=== PATIENT | female | born 1945 | race Caucasian/White ===

== ENCOUNTER 2017-02-02 02:28 | Inpatient (IN) | payer MEDICARE, BC, OTHER ==
[2017-02-02] VITALS (7 sets, daily range): BP systolic 112–142; BP diastolic 57–74; PULSE 69–104; RESP 18–20; TEMP 97.2–98.3; O2SAT 95–99
[~2017-02-02] VITALS: Ht 162.6 cm; Wt 74.8 kg
[~2017-02-02 02:28] MED LIST: CARV3.125 PO; DOXE25CA2 PO; DURAGESIC TD; EFFE150C PO; PROM25SU8 PO
--- NOTE | 2017-02-02 02:42 | PD ---
HPI Chief Complaint: Fall Time Seen by Provider: 02:38 Travel History International Travel<30 days: No Contact w/Intl Traveler<30days: No Traveled to known affect area: No History of Present Illness HPI This is a 72-year-old female with a history of breast cancer, sarcoidosis, fibromyalgia, who presents today via EMS with complaints of right ankle pain. Patient states she got up to use the restroom when she twisted her ankle wrong way. She states she felt a pop. She reports pain in her lower ankle in the anterior and posterior distribution. She denies any numbness or tingling of her toes. She denies any other injuries. PFSH Past Medical History Arthritis: Yes Blood Disorders: Yes (PREDISPOSITION TO BLOOD CLOTS) Anxiety: Yes Cancer: Yes (TRIP. BREASTS & SKIN) Cardiovascular Problems: Yes Chemotherapy: Yes (1993) Cerebrovascular Accident: Yes (PROB. DUE TO BCP'S) Diminished Hearing: No Endocrine: No Gastrointestinal Disorders: Yes GERD: Yes Genitourinary: Yes Hypertension: Yes Immune Disorder: Yes (FIBROMYALGIA) Kidney Stones: Yes (LEFT KIDNEY) Musculoskeletal: Yes Neurologic: Yes Psychiatric: Yes Reproductive: No Respiratory: Yes (SARCOIDOSIS) Radiation Therapy: No ?: Not Past Surgical History Abdominal Surgery: Yes (CHOLECYSTECTOMY) Section: Yes Cholecystectomy: Yes Ear Surgery: Yes (RIGHT EAR CANCER (REBUILT THE RIGHT EAR PINNA)) Genitourinary Surgery: Yes Gynecologic Surgery: Yes ( BILATERAL MASTECTOMY) Other Surgery: Yes Social History Alcohol Use: No Tobacco Use: No Substance Use: No Allergies-Medications (Allergen,Severity, Reaction): Coded Allergies: Adhesives (Unverified Allergy, Severe, SKIN BREAKDOWN, 06/10/09) Barium Sulfate (Verified Allergy, Mild, 06/10/09) Codeine (Verified Allergy, Mild, N/V, 06/10/09) Contrast Media (Verified Allergy, Mild, 06/10/09) Iodine (Verified Allergy, Mild, 06/10/09) Levaquin (Verified Allergy, Mild, 06/10/09) Macrobid (Verified Allergy, Mild, 06/10/09) Oxycodone (Verified Allergy, Mild, NAUSEA, 06/10/09) Penicillin (Verified Allergy, Mild, 06/10/09) Sudafed (Verified Allergy, Mild, 06/10/09) Sulfa (Verified Allergy, Mild, 06/10/09) Cipro (Verified Allergy, Unknown, 02/02/17) HMG-CoA Reductase Inhibitors (Verified Allergy, Unknown, 02/02/17) Reported Meds & Prescriptions Reported Meds & Active Scripts Active Reported Vitamin D (Cholecalciferol) 400 Unit Cap Stool Softener (Docusate Sodium) 50 Mg Capsule 0 Probiotic (Lactobacillus Combo No.10) 1 Each Capsule Cranberry (Cranberry (Vaccinium Macrocarpon)) 1 Powd 0 Krill Oil 500 Mg Capsule 0 Tramadol (Tramadol HCl) 50 Mg Tab 50 Mg PO Q6H PRN Carac (Fluorouracil (Topical)) 0.5 % Cre Metrogel (Metronidazole) 1 % Gel..gram. Xanax (Alprazolam) 0.25 Mg Tab 0.25 Mg PO TID PRN Skelaxin (Metaxalone) 800 Mg Tablet 800 Mg PO Q6HR PRN Metoprolol Tartrate 25 Mg Tab 25 Mg PO BID Dicyclomine (Dicyclomine HCl) 20 Mg Tab 20 Mg PO QID PRN Gabapentin 300 Mg Cap 300 Mg PO DAILY Doxepin (Doxepin HCl) 10 Mg Cap 10 Mg PO HS Levothyroxine (Levothyroxine Sodium) 100 Mcg Tab 100 Mcg PO DAILY Duloxetine DR (Duloxetine HCl) 60 Mg Capdr 60 Mg PO BID Review of Systems Except as stated in HPI: all other systems reviewed are Neg General / Constitutional: No: Fever, Chills HENT: No: Headaches, Neck Pain Cardiovascular: No: Chest Pain or Discomfort, Palpitations Respiratory: No: Cough, Shortness of Breath Gastrointestinal: No: Nausea, Abdominal Pain Musculoskeletal: Positive: Limited ROM, Pain (right ankle), No: Weakness, Edema Neurologic: No: Weakness, Syncope, Headache Physical Exam Narrative GENERAL: Well-nourished, well-developed patient, in no acute distress. SKIN: Focused skin assessment warm/dry. HEAD: Normocephalic/atraumatic. EYES: No scleral icterus. No injection or drainage. NECK: Supple, trachea midline. CARDIOVASCULAR: Regular rate and rhythm without murmurs, gallops, or rubs. RESPIRATORY: Breath sounds equal bilaterally. No accessory muscle use. GASTROINTESTINAL: Abdomen soft, non-tender, nondistended. MUSCULOSKELETAL: On examination the patient's right ankle, there is swelling and tenderness to the distal ankle. There is no obvious gross deformity. Paramedics report when they initially splinted her, it looked like there was bone trying to push through her skin. There is no tenting that I can appreciate at this time. Cap refill is less than 3 seconds. She has good movement of her toes 5. There is palpable dorsalis pedis pulse. BACK: Nontender without obvious deformity. No CVA tenderness. NEUROLOGICAL: Awake and alert. Cranial nerves II through XII intact. Motor grossly within normal limits. Five out of 5 muscle strength in all muscle groups. Normal speech. Data Data Last Documented VS Vital Signs Date Time Temp Pulse Resp B/P Pulse Ox O2 Delivery O2 Flow Rate FiO2 02/02/17 02:34 97.2 74 18 116/74 97 Orders Ankle, Limited (Ap&Lat) (02/02/17 02:39) Complete Blood Count With Diff (02/02/17 03:12) Basic Metabolic Panel (Bmp) (02/02/17 03:12) Prothrombin Time / Inr (Pt) (02/02/17 03:12) Act Partial Throm Time (Ptt) (02/02/17 03:12) Ondansetron Inj (Zofran Inj) (02/02/17 03:15) Hydromorphone Pf Inj (Dilaudid Pf Inj) (02/02/17 03:15) MDM Medical Decision Making Medical Screen Exam Complete: Yes Emergency Medical Condition: Yes Differential Diagnosis Fracture versus sprain versus contusion Narrative Course 72-year-old female presents with right ankle pain after a slip and fall while getting up to use the restroom. The patient has a bimalleolar fracture and a comminuted distal fibula fracture. The patient will be admitted to the medicine service. She is requesting Dr. Florian Roth is he's operated on her before. I'll put a consultation for Dr. Lancaster for tomorrow morning. Diagnosis Primary Impression: Bimalleolar fracture of right ankle Additional Impression: Displaced comminuted fracture of shaft of right fibula, initial encounter for closed fracture Grady Mayberry MD Feb 02, 2017 02:42
[2017-02-02] MEDS ORDERED: DULO1CAP3 PO (02:57)
[2017-02-02] MEDS ORDERED: LACT1CAP18 (02:57)
[2017-02-02] MEDS ORDERED: SKEL800T21 PO (02:57)
[2017-02-02] MEDS ORDERED: GABA300C5 PO (02:57)
[2017-02-02] MEDS ORDERED: METR1GEL2 (02:57)
[2017-02-02] MEDS ORDERED: DOXE10CA PO (02:57)
[2017-02-02] MEDS ORDERED: KRIL500C2 (02:57)
[2017-02-02] MEDS ORDERED: CARA0.5C (02:57)
[2017-02-02] MEDS ORDERED: TRAM50TA PO (02:57)
[2017-02-02] MEDS ORDERED: CRANPOW2 (02:57)
[2017-02-02] MEDS ORDERED: VITA400C28 (02:57)
[2017-02-02] MEDS ORDERED: DOCU50CA5 (02:57)
[2017-02-02] MEDS ORDERED: METO25TA3 PO (02:57)
[2017-02-02] MEDS ORDERED: LEVO100T5 PO (02:57)
[2017-02-02] MEDS ORDERED: DICY20TA10 PO (02:57)
[2017-02-02] MEDS ORDERED: ALPR.25 PO (02:57)
--- NOTE | 2017-02-02 03:05 | RADRPT ---
EXAM DATE/TIME: 02/02/2017 02:42 [facility] COMPARISON: No previous studies available for comparison. INDICATIONS : Right ankle pain post twisting injury. MEDICAL HISTORY : None. SURGICAL HISTORY : None. ENCOUNTER: Initial ACUITY: 1 day PAIN SCORE: 10/10 LOCATION: Right ankle FINDINGS: Two view examination was performed of the right ankle. There is a transverse fracture of the base of the medial malleolus. There is some widening of the ankle mortise medially. There is a comminuted fra cture of the distal fibular shaft. Probable posterior malleolus fracture as well. No radiopaque fore ign bodies are seen. Bony mineralization is normal. CONCLUSION: Fractures involving the medial and posterior malleolus. Fracture the distal fibular shaft which is co mminuted. Mic Schmid MD on February 02, 2017 at 3:02 Board Certified Radiologist. This report was verified electronically.
[2017-02-02] MEDS ORDERED: HYDROmorphone HCL PF 1 MG/ML VIAL IVS ONE (03:15)
[2017-02-02] MEDS ORDERED: ONDANSETRON HCL 4 MG/2 ML VIAL IVP ONE (03:15)
[2017-02-02 03:40] LABS: AUTOMATED NEUTROPHIL # 5.7 TH/MM3 (1.8-7.7); BASOPHIL % 0.4 % (0.0-2.0); EOSINOPHIL # 0.3 TH/MM3 (0-0.4); HEMATOCRIT 36.9 % (35.0-46.0); HEMO FLAGS DIFF FINAL; LYMPH % 28.1 % (9.0-44.0); LYMPHOCYTE # 2.6 TH/MM3 (1.0-4.8); MEAN CELL VOLUME 82.3 FL (80.0-100.0); MEAN CORPUSCULAR HEMOGLOBIN 27.8 PG (27.0-34.0); MEAN CORPUSCULAR HGB CONC 33.8 % (32.0-36.0); MONO % 8.3 % (0.0-8.0); NEUT % 60.2 % (16.0-70.0); PLATELET COUNT 234 TH/MM3 (150-450); RED BLOOD COUNT 4.48 MIL/MM3 (4.00-5.30); RED CELL DISTRIBUTION WIDTH 13.6 % (11.6-17.2); WHITE BLOOD COUNT 9.4 TH/MM3 (4.0-11.0)
[2017-02-02 03:50] LABS: APTT (PATIENT) 23.5 SEC (24.3-30.1); INTERNATIONAL NORMALIZED RATIO 0.9 RATIO
[2017-02-02 04:57] LABS: BICARBONATE 28.1 MEQ/L (21.0-32.0); POTASSIUM 4.3 MEQ/L (3.5-5.1)
[2017-02-02] MEDS ORDERED: BISACODYL 10 MG SUPP RECTAL PRN (05:30)
[2017-02-02] MEDS ORDERED: NALOXONE HCL 0.4 MG/ML AMP IV PRN (05:30)
[2017-02-02] MEDS ORDERED: MORPHINE SULFATE 4 MG/ML INJ IV PRN ×2 (05:30)
[2017-02-02] MEDS ORDERED: SODIUM CHLORIDE 0.9% FLUSH 10 ML FLUSH IV FLUSH PRN (05:30)
[2017-02-02] MEDS ORDERED: ACETAMINOPHEN 325 MG TAB PO PRN (05:30)
[2017-02-02] MEDS ORDERED: MAGNESIUM HYDROXIDE SUSP 30 ML CUP PO PRN (05:30)
[2017-02-02] MEDS ORDERED: ONDANSETRON HCL 4 MG/2 ML VIAL IVP PRN ×2 (05:30→14:15)
[2017-02-02] MEDS: LEVOTHYROXINE SODIUM 100 MCG TAB PO SCH (06:00)
[2017-02-02] MEDS: SODIUM CHLOR 0.9% 1000 ML INJ 1,000 ML IV SCH ×2 (06:20→09:46)
[2017-02-02] MEDS: HEPARIN SODIUM - SQ 10,000 UNITS/ML VIAL SQ SCH ×3 (06:20→22:00)
[2017-02-02] MEDS: SODIUM CHLORIDE 0.9% FLUSH 10 ML FLUSH IV FLUSH SCH ×2 (09:00→21:00)
[2017-02-02] MEDS ORDERED: DOCUSATE SODIUM 50 MG/SENNA 8.6 MG TAB PO SCH (09:00)
[2017-02-02] MEDS: METOPROLOL TARTRATE 25 MG TAB PO SCH ×2 (09:42→21:53)
[2017-02-02] MEDS: DULoxetine HCl DR 60 MG CAP PO SCH ×2 (09:42→21:52)
[2017-02-02] MEDS ORDERED: ACETAMINOPHEN 1000 MG/100 ML VIAL IV ONE (11:57)
[2017-02-02] MEDS ORDERED: LACTATED RINGER'S 1000 ML INJ 2,000 ML IV ONE (12:00)
[2017-02-02] MEDS ORDERED: PHENYLEPH/NS 1000 MCG/10 ML SYR IV ONE (12:00)
[2017-02-02] MEDS ORDERED: APREPITANT 40 MG CAP ONE (12:00)
[2017-02-02] MEDS ORDERED: ONDANSETRON HCL 4 MG/2 ML VIAL IV PUSH ONE (12:00)
[2017-02-02] MEDS ORDERED: PROPOFOL 200 MG/20 ML AMP IV ONE (12:00)
[2017-02-02] MEDS ORDERED: ePHEDrine/NS 25 MG/5 ML SYR IV ONE (12:00)
[2017-02-02] MEDS ORDERED: NEOSTIGMINE 3 MG/3 ML SYR IV ONE (12:00)
[2017-02-02] MEDS ORDERED: FAMOTIDINE 20 MG/2 ML VIAL ONE (12:01)
[2017-02-02] MEDS ORDERED: DEXAMETHASONE SOD PHOS 4 MG/ML VIAL ONE (12:01)
[2017-02-02] MEDS ORDERED: ceFAZolin INJ 1,000 MG VIAL ONE ×2 (12:10→12:13)
[2017-02-02] MEDS ORDERED: GENTAMICIN SULFATE 80 MG/2 ML VIAL ONE (12:11)
[2017-02-02] MEDS ORDERED: BUPIVACAINE/EPINEPHRINE 0.25% PF 10 ML VIAL ONE (12:37)
[2017-02-02] MEDS ORDERED: ceFAZolin INJ 1,000 MG VIAL IV ONE (12:58)
--- NOTE | 2017-02-02 14:01 | PD.CONS ---
HPI Service Orthopedic Surgeons [facility] Reason for Consult Fracture of the right ankle Primary Care Physician Non-Staff Admission Diagnosis bimalleolar right ankle fracture, right fibula fracture. Diagnoses: Chief Complaint: Painful right ankle History of Present Illness This patient is a 72-year-old female who fell sustaining an injury to her right ankle. She is brought to the emergency room by family. She was found have evidence of an unstable right bimalleolar ankle fracture. I have been asked to see her in consultation regarding the same Review of Systems Constitutional: DENIES: Diaphoretic episodes, Fatigue, Fever, Weight gain, Weight loss, Chills, Dizziness, Change in appetite, Night Sweats Endocrine: DENIES: Abnorml menstrual pattern, Heat/cold intolerance, Polydipsia , Polyuria, Polyphagia Eyes: DENIES: Blurred vision, Diplopia, Eye inflammation, Eye pain, Vision loss , Photosensitivity, Double Vision Ears, nose, mouth, throat: DENIES: Tinnitus, Hearing loss, Vertigo, Nasal discharge, Oral lesions, Throat pain, Hoarseness, Ear Pain, Running Nose, Epistaxis, Sinus Pain, Toothache, Odynophagia Respiratory: DENIES: Apneas, Cough, Snoring, Wheezing, Hemoptysis, Sputum production, Shortness of breath Cardiovascular: DENIES: Chest pain, Palpitations, Syncope, Dyspnea on Exertion , PND, Lower Extremity Edema, Orthopnea, Claudication Gastrointestinal: DENIES: Abdominal pain, Black stools, Bloody stools, Constipation, Diarrhea, Nausea, Vomiting, Difficulty Swallowing, Anorexia Genitourinary: DENIES: Abnormal vaginal bleeding, Dysmenorrhea, Dyspareunia, Sexual dysfunction, Urinary frequency, Urinary incontinence, Urgency, Hematuria , Dysuria, Nocturia, Vaginal discharge Musculoskeletal: COMPLAINS OF: Joint pain (right ankle pain and swelling) Integumentary: DENIES: Abnormal pigmentation, Pruritus, Rash, Nail changes, Breast masses, Breast skin changes, Nipple discharge Hematologic/lymphatic: DENIES: Bruising, Lymphadenopathy Immunologic/allergic: DENIES: Eczema, Urticaria Neurologic: DENIES: Abnormal gait, Headache, Localized weakness, Paresthesias, Seizures, Speech Problems, Tremor, Poor Balance Psychiatric: DENIES: Anxiety, Confusion, Mood changes, Depression, Hallucinations, Agitation, Suicidal Ideation, Homicidal Ideation, Delusions Past Family Social History Past Medical History Nephrolithiasis, anxiety, bilateral breast cancer, cardiovascular disease, history of chemotherapy 1993, history of CVA, GERD, high blood pressure, fibromyalgia, sarcoidosis Past Surgical History Cholecystectomy, section, previous ear surgery, genitourinary surgery, bilateral mastectomy Allergies: Coded Allergies: Adhesives (Unverified Allergy, Severe, SKIN BREAKDOWN, 06/10/09) Barium Sulfate (Verified Allergy, Mild, 06/10/09) Codeine (Verified Allergy, Mild, N/V, 06/10/09) Contrast Media (Verified Allergy, Mild, 06/10/09) Iodine (Verified Allergy, Mild, 06/10/09) Levaquin (Verified Allergy, Mild, 06/10/09) Macrobid (Verified Allergy, Mild, 06/10/09) Oxycodone (Verified Allergy, Mild, NAUSEA, 06/10/09) Penicillin (Verified Allergy, Mild, 06/10/09) Sudafed (Verified Allergy, Mild, 06/10/09) Sulfa (Verified Allergy, Mild, 06/10/09) Cipro (Verified Allergy, Unknown, 02/02/17) HMG-CoA Reductase Inhibitors (Verified Allergy, Unknown, 02/02/17) Active Ordered Medications Current Medications Medications (Trade) Dose Ordered Sig/Tal Route Start Time Stop Time Status Last Admin (Xanax) 0.25 mg TID PRN PO 02/02/17 05:30 (Cymbalta Dr) 60 mg BID PO 02/02/17 09:00 02/02/17 09:42 (Synthroid) 100 mcg DAILY@06 PO 02/02/17 06:00 Metoprolol Tartrate 25 mg 25 mg BID PO 02/02/17 09:00 02/02/17 09:42 (NS 1000 ml Inj) 1,000 ml @ 60 mls/hr [id number] IV 02/02/17 05:21 02/02/17 22:00 02/02/17 06:20 (NS Flush) 2 ml UNSCH PRN IV FLUSH 02/02/17 05:30 (NS Flush) 2 ml BID IV FLUSH 02/02/17 09:00 (Tylenol) 650 mg Q4H PRN PO 02/02/17 05:30 (Zofran Inj) 4 mg Q6H PRN IVP 02/02/17 05:30 (Heparin Inj) 5,000 units Q8H SQ 02/02/17 06:00 02/02/17 06:20 (Morphine Inj) 2 mg Q3H PRN IV 02/02/17 05:30 02/02/17 09:42 (Morphine Inj) 4 mg Q3H PRN IV 02/02/17 05:30 02/02/17 06:21 (Narcan Inj) 0.4 mg UNSCH PRN IV 02/02/17 05:30 (Lillie-Colace) 1 tab BID PO 02/02/17 09:00 (Milk Of [place]io Liq) 30 ml Q12H PRN PO 02/02/17 05:30 (Dulcolax Supp) 10 mg DAILY PRN RECTAL 02/02/17 05:30 Reported Meds & Active Scripts Active Reported Vitamin D (Cholecalciferol) 400 Unit Cap Stool Softener (Docusate Sodium) 50 Mg Capsule 0 Probiotic (Lactobacillus Combo No.10) 1 Each Capsule Cranberry (Cranberry (Vaccinium Macrocarpon)) 1 Powd 0 Krill Oil 500 Mg Capsule 0 Tramadol (Tramadol HCl) 50 Mg Tab 50 Mg PO Q6H PRN Carac (Fluorouracil (Topical)) 0.5 % Cre Metrogel (Metronidazole) 1 % Gel..gram. Xanax (Alprazolam) 0.25 Mg Tab 0.25 Mg PO TID PRN Skelaxin (Metaxalone) 800 Mg Tablet 800 Mg PO Q6HR PRN Metoprolol Tartrate 25 Mg Tab 25 Mg PO BID Dicyclomine (Dicyclomine HCl) 20 Mg Tab 20 Mg PO QID PRN Gabapentin 300 Mg Cap 300 Mg PO DAILY Doxepin (Doxepin HCl) 10 Mg Cap 10 Mg PO HS Levothyroxine (Levothyroxine Sodium) 100 Mcg Tab 100 Mcg PO DAILY Duloxetine DR (Duloxetine HCl) 60 Mg Capdr 60 Mg PO BID Physical Exam Vital Signs Vital Signs Date Time Temp Pulse Resp B/P Pulse Ox O2 Delivery O2 Flow Rate FiO2 02/02/17 08:00 97.6 73 19 142/72 97 02/02/17 07:43 69 18 128/64 96 02/02/17 05:27 99 Nasal Cannula 2.00 02/02/17 05:14 70 18 134/63 99 Nasal Cannula 2 02/02/17 02:34 97.2 74 18 116/74 97 Physical Exam Patient is lying in bed comfortable. She is in a splint on the right leg. Sensation is normal. She wiggles her toes. Mild swelling. Capillary refill satisfactory Laboratory Laboratory Tests Test 02/02/17 03:20 White Blood Count 9.4 Red Blood Count 4.48 Hemoglobin 12.5 Hematocrit 36.9 Mean Corpuscular Volume 82.3 Mean Corpuscular Hemoglobin 27.8 Mean Corpuscular Hemoglobin 33.8 Concent Red Cell Distribution Width 13.6 Platelet Count 234 Mean Platelet Volume 8.4 Neutrophils (%) (Auto) 60.2 Lymphocytes (%) (Auto) 28.1 Monocytes (%) (Auto) 8.3 Eosinophils (%) (Auto) 3.0 Basophils (%) (Auto) 0.4 Neutrophils # (Auto) 5.7 Lymphocytes # (Auto) 2.6 Monocytes # (Auto) 0.8 Eosinophils # (Auto) 0.3 Basophils # (Auto) 0.0 CBC Comment DIFF FINAL Differential Comment Prothrombin Time 10.0 Prothromb Time International 0.9 Ratio Activated Partial 23.5 Thromboplast Time Sodium Level 140 Potassium Level 4.3 Chloride Level 103 Carbon Dioxide Level 28.1 Anion Gap 9 Blood Urea Nitrogen 18 Creatinine 1.31 Estimat Glomerular Filtration 40 Rate Random Glucose 168 Calcium Level 9.1 Result Diagram: 02/02/17 0320 02/02/17 0320 Imaging X-ray reviewed and review of the radiologist's interpretation shows evidence of an unstable bimalleolar right ankle fracture subluxation Assessment & Plan Assessment and Plan Right ankle by malleolar fracture subluxation. PLAN: Surgical treatment: Open treatment internal fixation right ankle fracture with plates and screws. Consent: There are risks with surgery including infection, bleeding, loss of motion, continued pain, need for further surgery. Likely this patient is osteoporotic. Loss of fixation is a significant risk for her if she prematurely weight bears and Ancef for antibiotics Probable discharge tomorrow to home if arrangements can be made. Surgical treatment today Need for anticoagulation is not considered be significant for an ankle fracture. I will defer to medical therapy feel it is necessary. Vance Moreno MD Feb 02, 2017 14:01
--- NOTE | 2017-02-02 14:04 | EKG ---
Date Performed: 02/02/2017 Time Performed: 11:36:15 PTAGE: 72 years EKG: Sinus rhythm WITH SINUS ARRHYTHMIA NONSPECIFIC T-WAVE ABNORMALITY BORDERLINE ECG PREVIOUS TRACING : 05/05/2009 13.10 Since previous tracing, no significant change noted DOCTOR: Coy Cantor Interpretating Date/Time 02/02/2017 13:58:04
--- NOTE | 2017-02-02 14:06 | PD.OP ---
cc: Vance Moreno MD Operative Report Date of Surgery: Feb 02, 2017 Preoperative Diagnosis: Right ankle by malleolar fracture subluxation Postoperative Diagnosis: Same Procedure: Open treatment internal fixation right ankle fracture with lateral plates and screws and medial screws Anesthesia: Gen. Surgeon: Vance Moreno Artificial Leather Calender Operator(s): TERE Molina Operation and Findings: EBL: 50 cc INDICATION: Patient is a 72-year-old female who fell late yesterday sustaining an unstable right ankle fracture subluxation. She is felt to be a candidate for surgical treatment. NOTE: Jessica Molina PA-C was present for the entire surgical procedure as my agency sales management assistant. In my medical opinion her skill and care was necessary for the proper management of this patient. PROCEDURE: The patient brought to the operating room and anesthetized in the supine position. The right leg was visualized under fluoroscopy. Antibiotics were given within an one hour time window and a timeout was done. The lateral side was approached. After exsanguination the tourniquet was inflated to 250 mmHg. A longitudinal incision was made. The fracture was exposed. Multiple clamps used to hold this in proper position. A proper length Synthes one third tubular plate was positioned and held. Multiple screws were placed as well as a lag screw. Overall alignment was satisfactory case was noted. The wound was closed in layers with 2-0 Vicryl 3-0 Vicryl and 3 -0 nylon mattress sutures. We used #[address] cerclage cables around the region of comminution and butterfly fragments. A medial incision was made. A clamp was used to hold the medial malleolus and anatomic alignment. A cannulated screw system was utilized. 2 pins were placed in good fashion and position. There measured carefully. They were drilled and the proper length screws were advanced across the wire across the fracture. The fracture was reduced anatomically. The wound was closed with 3- 0 nylon in a mattress fashion The wound was irrigated copiously and hemostasis was controlled. Intraoperative imaging showed anatomic reduction. Alignment was satisfactory. A posterior splint was fitted and applied. The patient was awakened and taken to recovery room satisfactory condition. The sponge count and needle count and sponge counts were all correct FINDINGS: This patient had significant osteopenia. Fracture reduction was considered to be very good. Fixation was felt to be only adequate because of overall poor quality bone. The patient will be immobilized for 8 weeks and a splint or cast before weightbearing. Vance Moreno MD Feb 02, 2017 14:05
[2017-02-02] MEDS ORDERED: HYDR-3288 PO (14:10)
[2017-02-02] MEDS ORDERED: diphenhydrAMINE HCL 25 MG CAP PO PRN (14:15)
[2017-02-02] MEDS ORDERED: SODIUM CHLORIDE 0.9% FLUSH 5 ML FLUSH IVF PRN (14:15)
[2017-02-02] MEDS ORDERED: Post-op Orders (for Pharmacy) MISC XX ONE (14:15)
[2017-02-02] MEDS ORDERED: MORPHINE SULFATE 8 MG/ML INJ IV PUSH PRN (14:15)
[2017-02-02] MEDS ORDERED: SUGAMMADEX SODIUM 200 MG/2 ML VIAL IV PUSH ONE ×2 (14:22)
[2017-02-02] MEDS ORDERED: DO NOT ADM ANY ANTICOAGULANT DRUGS PRN ×2 (14:45→15:45)
[2017-02-02] MEDS ORDERED: *MEPERIDINE 25 MG INJ VIAL PERIprocedural Use ONLY ONE (14:46)
[2017-02-02] MEDS: LACTATED RINGER'S 1000 ML INJ 1,000 ML IV SCH (15:00)
[2017-02-02] MEDS ORDERED: MIDAZOLAM HCL 2 MG/2 ML VIAL ONE (15:00)
[2017-02-02] MEDS ORDERED: fentaNYL CITRATE 250 MCG/5 ML AMP ONE (15:00)
[2017-02-02] MEDS: ACETAMINOPHEN/HYDROcodone 325 MG/7.5 MG TAB PO PRN ×2 (16:35→23:33)
[2017-02-02] MEDS: CALCIUM/VITAMIN D 250 MG/125 U TAB PO SCH (16:35)
--- NOTE | 2017-02-02 16:52 | HHI.HP ---
[facility]Staff Admission Diagnosis bimalleolar right ankle fracture, right fibula fracture. Diagnoses: (1) Bimalleolar fracture of right ankle Chief Complaint: Right ankle pain Travel History International Travel<30 Days: No Contact w/Intl Traveler <30 Da: No Traveled to Known Affected Are: No History of Present Illness Written by Jaida Miller, acting as scribe for Dr. Perez on 02/02/17 at 16:45. This note was transcribed by scribSussy LUNA. I, Dr. Magaly Perez personally performed the history, physical exam, and medical decision making; and confirmed the accuracy of the information in the transcribed note. Authenticated by Dr. Magaly Perez on 02/02/17 at 16:45. Mrs. Marquez is a 72-year-old female with a known medical history of type 2 diabetes mellitus, osteopenia, hypothyroidism, hypertension, dyslipidemia, osteoarthritis and degenerative disc disease who presented to the ED with complaints of right ankle pain after sustaining a fall when getting up from bed to go to the restroom. Patient states she had pivoted and twisted ankle, with a audible pop heard. Upon arrival it was found on right ankle x-ray patient sustained a bimalleolar fracture and commuted distal tib fracture. Patient is status post right ankle open treatment of internal fixation with lateral plates and screws and medial screws with Dr. Moreno. Patient was found to have significant osteopenia per surgery note. At this time patient is seen and examined. Current pain is a 7/10 on pain scale, sensation intact, denies any numbness of tingling. Anuj dressing wrap in place dry and intact. Denies any recent fever, chills, cough, shortness of breath, chest pain, palpitations, abdominal pain, nausea, vomiting, diarrhea, or dysuria. Review of Systems Musculoskeletal: COMPLAINS OF: Joint pain (right ankle) Except as stated in HPI: all other systems reviewed are Neg Past Family Social History Past Medical History Hypothyroidism Nephrolithiasis CVA Sarcoidosis Breast cancer status post bilateral mastectomy in 1993. Type 2 diabetes mellitus Hypertension Dyslipidemia Osteoarthritis Osteopenia Fibromyalgia Anxiety Arthritis History of CVA GERD Degenerative disc disease Past Surgical History Cholecystectomy Right ear cancer removal Bladder surgery 2 Bilateral mastectomy Lumbar spine surgery 2, and . Reported Medications Active Surprise (Hydrocodone-Acetaminophen) 7.5-325 mg Tab 1 Tab PO Q4H PRN Reported Vitamin D (Cholecalciferol) 400 Unit Cap Stool Softener (Docusate Sodium) 50 Mg Capsule 0 Probiotic (Lactobacillus Combo No.10) 1 Each Capsule Cranberry (Cranberry (Vaccinium Macrocarpon)) 1 Powd 0 Krill Oil 500 Mg Capsule 0 Tramadol (Tramadol HCl) 50 Mg Tab 50 Mg PO Q6H PRN Carac (Fluorouracil (Topical)) 0.5 % Cre Metrogel (Metronidazole) 1 % Gel..gram. Xanax (Alprazolam) 0.25 Mg Tab 0.25 Mg PO TID PRN Skelaxin (Metaxalone) 800 Mg Tablet 800 Mg PO Q6HR PRN Metoprolol Tartrate 25 Mg Tab 25 Mg PO BID Dicyclomine (Dicyclomine HCl) 20 Mg Tab 20 Mg PO QID PRN Gabapentin 300 Mg Cap 300 Mg PO DAILY Doxepin (Doxepin HCl) 10 Mg Cap 10 Mg PO HS Levothyroxine (Levothyroxine Sodium) 100 Mcg Tab 100 Mcg PO DAILY Duloxetine DR (Duloxetine HCl) 60 Mg Capdr 60 Mg PO BID Allergies: Coded Allergies: Adhesives (Unverified Allergy, Severe, SKIN BREAKDOWN, 06/10/09) Barium Sulfate (Verified Allergy, Mild, 06/10/09) Codeine (Verified Allergy, Mild, N/V, 06/10/09) Contrast Media (Verified Allergy, Mild, 06/10/09) Iodine (Verified Allergy, Mild, 06/10/09) Levaquin (Verified Allergy, Mild, 06/10/09) Macrobid (Verified Allergy, Mild, 06/10/09) Oxycodone (Verified Allergy, Mild, NAUSEA, 06/10/09) Penicillin (Verified Allergy, Mild, 06/10/09) Sudafed (Verified Allergy, Mild, 06/10/09) Sulfa (Verified Allergy, Mild, 06/10/09) Cipro (Verified Allergy, Unknown, 02/02/17) HMG-CoA Reductase Inhibitors (Verified Allergy, Unknown, 02/02/17) Active Ordered Medications Current Medications Medications (Trade) Dose Ordered Sig/Tal Route Start Time Stop Time Status Last Admin (Xanax) 0.25 mg TID PRN PO 02/02/17 05:30 (Cymbalta Dr) 60 mg BID PO 02/02/17 09:00 02/02/17 09:42 (Synthroid) 100 mcg DAILY@06 PO 02/02/17 06:00 Metoprolol Tartrate 25 mg 25 mg BID PO 02/02/17 09:00 02/02/17 09:42 (NS 1000 ml Inj) 1,000 ml @ 60 mls/hr [id number] IV 02/02/17 05:21 02/02/17 22:00 02/02/17 06:20 (NS Flush) 2 ml UNSCH PRN IV FLUSH 02/02/17 05:30 (NS Flush) 2 ml BID IV FLUSH 02/02/17 09:00 (Tylenol) 650 mg Q4H PRN PO 02/02/17 05:30 (Zofran Inj) 4 mg Q6H PRN IVP 02/02/17 05:30 (Heparin Inj) 5,000 units Q8H SQ 02/02/17 06:00 02/02/17 06:20 (Narcan Inj) 0.4 mg UNSCH PRN IV 02/02/17 05:30 Bisacodyl 10 mg 10 mg DAILY PRN RECTAL 02/02/17 05:30 (Lr 1000 ml Inj) 1,000 ml @ 100 mls/hr Q10H IV 02/02/17 15:00 02/02/17 15:00 (NS Flush) 2 ml UNSCH PRN IVF 02/02/17 14:15 (NS Flush) 2 ml BID IVF 02/02/17 21:00 (Lillie-Colace) 1 tab BID PO 02/02/17 21:00 Magnesium Hydroxide 10 ml 10 ml Q12H PRN PO 02/02/17 14:15 (Ancef Inj/NS Inj) 100 ml @ 200 mls/hr Q8H IV 02/02/17 16:00 02/03/17 08:29 (Surprise 7.5-325 Mg) 1 tab Q4H PRN PO 02/02/17 14:15 ([place] 7.5-325 Mg) 2 tab Q6H PRN PO 02/02/17 14:15 (Morphine Inj) 5 mg Q4H PRN IV PUSH 02/02/17 14:15 (Oscal-D 250-125) 250 mg TID PO 02/02/17 18:00 (Theragran M Tab) 1 tab DAILY PO 02/03/17 09:00 (Benadryl) 25 mg Q6H PRN PO 02/02/17 14:15 Miscellaneous Information ALL NURSING DEPARTME... UNSCH PRN .XX 02/02/17 15:45 02/03/17 15:44 Family History Patient has two sisters with presence of breast cancer as well. Mother at the age of 6565 years old, she was an alcoholic and smoker with emphysema. Patient unaware of father's medical history, diet at the age of 87. Social History Patient is . Denies any current or past tobacco use. Admits to occasional alcohol use. Denies any illicit drug use. Physical Exam Vital Signs Vital Signs Date Time Temp Pulse Resp B/P Pulse Ox O2 Delivery O2 Flow Rate FiO2 02/02/17 15:00 81 15 133/61 96 Nasal Cannula 4 02/02/17 14:48 98.7 90 16 141/77 100 Nasal Cannula 4 02/02/17 08:00 97.6 73 19 142/72 97 02/02/17 07:43 69 18 128/64 96 02/02/17 05:27 99 Nasal Cannula 2.00 02/02/17 05:14 70 18 134/63 99 Nasal Cannula 2 02/02/17 02:34 97.2 74 18 116/74 97 Physical Exam GENERAL: Well-nourished, well-developed patient, lying in bed post surgery SKIN: No rashes, ecchymoses or lesions. Warm and dry. HEAD: Atraumatic. Normocephalic. Pupils equal round and reactive. Extraocular motions intact. No scleral icterus. Nose without bleeding. Airway patent. NECK: Trachea midline. No JVD or lymphadenopathy. Supple. CARDIOVASCULAR: Regular rate and rhythm. No murmur appreciated. RESPIRATORY: Clear to auscultation. Breath sounds equal bilaterally. No wheezes , rales, or rhonchi. GASTROINTESTINAL: Abdomen soft, non-tender, nondistended. No guarding. MUSCULOSKELETAL: Extremities without clubbing, cyanosis, or edema. No joint tenderness, effusion, or edema noted. Right leg anuj bandage in place, clean, dry , intact. NEUROLOGICAL: Awake and alert. Cranial nerves II through XII intact. Motor and sensory grossly within normal limits. Five out of 5 muscle strength in all muscle groups. Normal speech. Laboratory Laboratory Tests Test 02/02/17 03:20 White Blood Count 9.4 Red Blood Count 4.48 Hemoglobin 12.5 Hematocrit 36.9 Mean Corpuscular Volume 82.3 Mean Corpuscular Hemoglobin 27.8 Mean Corpuscular Hemoglobin 33.8 Concent Red Cell Distribution Width 13.6 Platelet Count 234 Mean Platelet Volume 8.4 Neutrophils (%) (Auto) 60.2 Lymphocytes (%) (Auto) 28.1 Monocytes (%) (Auto) 8.3 Eosinophils (%) (Auto) 3.0 Basophils (%) (Auto) 0.4 Neutrophils # (Auto) 5.7 Lymphocytes # (Auto) 2.6 Monocytes # (Auto) 0.8 Eosinophils # (Auto) 0.3 Basophils # (Auto) 0.0 CBC Comment DIFF FINAL Differential Comment Prothrombin Time 10.0 Prothromb Time International 0.9 Ratio Activated Partial 23.5 Thromboplast Time Sodium Level 140 Potassium Level 4.3 Chloride Level 103 Carbon Dioxide Level 28.1 Anion Gap 9 Blood Urea Nitrogen 18 Creatinine 1.31 Estimat Glomerular Filtration 40 Rate Random Glucose 168 Calcium Level 9.1 Result Diagram: 02/02/17 0320 02/02/17 0320 Imaging Last Impressions Ankle X-Ray 02/02/17 0239 Signed Impressions: Service Date/Time: January 02:42 - CONCLUSION: Fractures involving the medial and posterior malleolus. Fracture the distal fibular shaft which is comminuted. Mic Schmid MD Assessment and Plan Assessment and Plan Mrs. Marquez is a 72-year-old female with a known medical history of type 2 diabetes mellitus, osteopenia, hypothyroidism, hypertension, dyslipidemia, osteoarthritis and degenerative disc disease who presented to the ED with complaints of right ankle pain after sustaining a fall when getting up from bed to go to the restroom. Patient states she had pivoted and twisted ankle, with a audible pop heard. Upon arrival it was found on right ankle x-ray patient sustained a bimalleolar fracture and commuted distal tib fracture. Patient is status post right ankle open treatment of internal fixation with lateral plates and screws and medial screws with Dr. Moreno. Status post right ankle open treatment internal fixation with lateral plates and screws and medial screws - Postop day 0. - Control pain. [place] 7.5/325 mg PO PRN for pain scale. Morphine 5 mg IV q4h PRN pain > 5. - Ancef 1 g x 3 bags. - Continue LR at 100 ml/hr. encourage PO intake, DC when tolerating PO. - Monitor for constipation, Lillie-Colace 1 tab PO BID, Dulcolax suppository PRN. Monitor for nausea, Zofran 4 mg IV q6hr PRN nausea. Hypertension, chronic: Continue Lopressor 25 mg PO BID. monitor. Osteopenia: Continue calcium/vitamin d 250 mg PO TID. Other chronic medical problems include anxiety, depression, hypothyroidism and are stable at this time. Continue home medications as indicated. DVT prophylaxis: SCDs/TEDs. Heparin 5,000 units sq Q8hr. Physician Certification 2 Midnight Certification Type: Admission for Inpatient Services Order for Inpatient Services The services are ordered in accordance with Medicare regulations or non- Medicare payer requirements, as applicable. In the case of services not specified as inpatient-only, they are appropriately provided as inpatient services in accordance with the 2-midnight benchmark. Estimated LOS (days): 2 days is the estimated time the patient will need to remain in the hospital, assuming treatment plan goals are met and no additional complications. Post-Hospital Plan: Home Jaida Miller Feb 02, 2017 16:52 Magaly Perez MD Feb 02, 2017 20:09
--- NOTE | 2017-02-02 17:11 | RADRPT ---
EXAM DATE/TIME: 02/02/2017 13:43 [place] COMPARISON: ANKLE RIGHT LIMITED (AP&LAT), February 02, 2017, 2:42. INDICATIONS : ORIF right ankle. MEDICAL HISTORY : None. SURGICAL HISTORY : None. ENCOUNTER: Subsequent ACUITY: 2 days PAIN SCORE: Non-responsive. LOCATION: Right ankle. FINDINGS: 2 images were recorded digitally in the operating room using C-arm during placement of a lateral fibu lar plate and 2 screws in the medial distal tibia. CONCLUSION: Intraoperative images. Jonel Beltran MD on February 02, 2017 at 17:08 Board Certified Radiologist. This report was verified electronically.
[2017-02-02] MEDS: SODIUM CHLORIDE 0.9% FLUSH 5 ML FLUSH IVF SCH (21:00)
[2017-02-02] MEDS: DOCUSATE SODIUM 50 MG/SENNA 8.6 MG TAB PO SCH (21:53)
[2017-02-03] VITALS (8 sets, daily range): BP systolic 110–159; BP diastolic 61–73; PULSE 70–104; RESP 16–20; TEMP 96.9–98.4; O2SAT 93–100
[2017-02-03] MEDS: LACTATED RINGER'S 1000 ML INJ 1,000 ML IV SCH ×3 (01:00→21:00)
[2017-02-03] MEDS: ACETAMINOPHEN/HYDROcodone 325 MG/7.5 MG TAB PO PRN ×4 (04:56→17:49)
[2017-02-03] MEDS: LEVOTHYROXINE SODIUM 100 MCG TAB PO SCH (05:26)
[2017-02-03] MEDS: HEPARIN SODIUM - SQ 10,000 UNITS/ML VIAL SQ SCH ×3 (05:26→21:19)
[2017-02-03 06:58] LABS: AUTOMATED NEUTROPHIL # 7.1 TH/MM3 (1.8-7.7); BASOPHIL % 0.1 % (0.0-2.0); EOSINOPHIL % 0.3 % (0.0-4.0); HEMO FLAGS DIFF FINAL; LYMPH % 19.2 % (9.0-44.0); LYMPHOCYTE # 1.9 TH/MM3 (1.0-4.8); MEAN CELL VOLUME 81.8 FL (80.0-100.0); MEAN CORPUSCULAR HEMOGLOBIN 27.8 PG (27.0-34.0); MONO % 8.9 % (0.0-8.0); NEUT % 71.5 % (16.0-70.0); PLATELET COUNT 183 TH/MM3 (150-450); RED BLOOD COUNT 3.67 MIL/MM3 (4.00-5.30); WHITE BLOOD COUNT 9.9 TH/MM3 (4.0-11.0)
[2017-02-03 07:34] LABS: BICARBONATE 25.7 MEQ/L (21.0-32.0); POTASSIUM 4.3 MEQ/L (3.5-5.1)
--- NOTE | 2017-02-03 07:44 | PD.ORT.PN ---
Subjective Subjective Remarks No complaints. Indicates that her works 3 days a week and no one will be at home. Prior to this injury, she spent quite a bit of time in bed due to other medical conditions. She indicates that likely she will not be able to ambulate with a walker Objective Vitals Vital Signs Date Time Temp Pulse Resp B/P Pulse Ox O2 Delivery O2 Flow Rate FiO2 02/03/17 04:45 97.6 84 18 158/73 96 02/03/17 00:20 97.7 104 18 157/62 99 02/02/17 20:30 98.3 104 18 126/57 96 02/02/17 15:50 97.4 85 20 112/59 95 02/02/17 15:00 81 15 133/61 96 Nasal Cannula 4 02/02/17 14:48 98.7 90 16 141/77 100 Nasal Cannula 4 02/02/17 08:00 97.6 73 19 142/72 97 02/02/17 07:43 69 18 128/64 96 I/O 02/02/17 02/02/17 02/02/17 02/03/17 02/03/17 02/03/17 07:00 15:00 23:00 07:00 15:00 23:00 Intake Total 2000 ml 480 ml 720 ml Balance 2000 ml 480 ml 720 ml Intake Oral 480 ml 720 ml Other 2000 ml # Voids 3 3 # Bowel Movements 0 0 Result Diagram: 02/03/17 0609 02/03/17 0609 Objective Remarks Dressing intact. Capillary refill satisfactory. No abnormal swelling. Sensation normal Assessment & Plan Ortho Post Op Day #: 1 Problem List: Assessment and Plan Right ankle bi-malleolar fracture subluxation. ORIF with plates and screws: POD #1 PLAN: Nonweightbearing right leg. No need for anticoagulation by orthopedics. If medicine feels it is necessary , I will defer to them. Stable for discharge by orthopedics. This patient will likely need to consider SNF. 3008 form has been filled out as well as supplemental. [place] for pain Follow-up in 2 weeks If still in hospital over the weekend we will see her one time Vance Moreno MD Feb 03, 2017 07:44
[2017-02-03] MEDS ORDERED: WALKER WHEELS/F1 MIS (07:50)
[2017-02-03] MEDS: SODIUM CHLORIDE 0.9% FLUSH 10 ML FLUSH IV FLUSH SCH (09:00)
[2017-02-03] MEDS: DOCUSATE SODIUM 50 MG/SENNA 8.6 MG TAB PO SCH ×2 (09:00→21:18)
[2017-02-03] MEDS: SODIUM CHLORIDE 0.9% FLUSH 5 ML FLUSH IVF SCH ×2 (09:00→21:00)
[2017-02-03] MEDS: CALCIUM/VITAMIN D 250 MG/125 U TAB PO SCH ×3 (10:11→17:49)
[2017-02-03] MEDS: MULTIVITAMINS/MINERALS THERAPEUTIC TAB PO SCH (10:11)
[2017-02-03] MEDS: DULoxetine HCl DR 60 MG CAP PO SCH ×2 (10:12→21:18)
[2017-02-03] MEDS: METOPROLOL TARTRATE 25 MG TAB PO SCH ×2 (10:12→21:18)
[2017-02-03] MEDS: ALPRAZolam 0.25 MG TAB PO PRN (11:49)
--- NOTE | 2017-02-03 15:09 | HHI.PR ---
Subjective Remarks Says she has some more pain today. Was able to do PT however she is not going well with PT. Patient appears in nad. She is in bed. Says no n/v/d/c. No fever or chills. Objective Vitals Vital Signs Date Time Temp Pulse Resp B/P Pulse Ox O2 Delivery O2 Flow Rate FiO2 02/03/17 12:11 97.6 78 20 154/66 97 02/03/17 08:59 97.9 76 16 159/70 99 02/03/17 08:53 100 Nasal Cannula 1.00 02/03/17 04:45 97.6 84 18 158/73 96 02/03/17 00:20 97.7 104 18 157/62 99 02/02/17 20:30 98.3 104 18 126/57 96 02/02/17 15:50 97.4 85 20 112/59 95 I/O 02/02/17 02/02/17 02/02/17 02/03/17 02/03/17 02/03/17 06:59 14:59 22:59 06:59 14:59 22:59 Intake Total 2000 ml 480 ml 720 ml Output Total 200 ml Balance 2000 ml 480 ml 720 ml -200 ml Intake Oral 480 ml 720 ml Other 2000 ml Output Urine Total 200 ml # Voids 3 3 1 # Bowel Movements 0 0 Result Diagram: 02/03/17 0609 02/03/17 0609 Imaging Last Impressions Ankle X-Ray 02/02/17 0239 Signed Impressions: Service Date/Time: January 02:42 - CONCLUSION: Fractures involving the medial and posterior malleolus. Fracture the distal fibular shaft which is comminuted. Mic Schmid MD Objective Remarks GENERAL: Well-nourished, well-developed patient, lying in bed, alert and oriented. SKIN: No rashes, ecchymoses or lesions. Warm and dry. HEAD: Atraumatic. Normocephalic. Pupils equal round and reactive. Extraocular motions intact. No scleral icterus. Nose without bleeding. Airway patent. NECK: Trachea midline. No JVD or lymphadenopathy. Supple. CARDIOVASCULAR: Regular rate and rhythm. No murmur appreciated. RESPIRATORY: Clear to auscultation. Breath sounds equal bilaterally. No wheezes , rales, or rhonchi. GASTROINTESTINAL: Abdomen soft, non-tender, nondistended. No guarding. MUSCULOSKELETAL: Extremities without clubbing, cyanosis, or edema. No joint tenderness, effusion, or edema noted. Right leg dave bandage in place, clean, dry , intact. NEUROLOGICAL: Awake and alert. Cranial nerves II through XII intact. Motor and sensory grossly within normal limits. Five out of 5 muscle strength in all muscle groups. Normal speech. A/P Problem List: (1) Bimalleolar fracture of right ankle ICD Code: S82.841A Status: Acute Assessment and Plan Mrs. Marquez is a 72-year-old female with a known medical history of type 2 diabetes mellitus, osteopenia, hypothyroidism, hypertension, dyslipidemia, osteoarthritis and degenerative disc disease who presented to the ED with complaints of right ankle pain after sustaining a fall when getting up from bed to go to the restroom. Patient states she had pivoted and twisted ankle, with a audible pop heard. Upon arrival it was found on right ankle x-ray patient sustained a bimalleolar fracture and commuted distal tib fracture. Patient is status post right ankle open treatment of internal fixation with lateral plates and screws and medial screws with Dr. Moreno. S/p fall with bimalleolar fracture and commuted distal tib fracture. Status post right ankle open treatment internal fixation with lateral plates and screws and medial screws on 02/03/[address] Mclaughlin Control pain. [place] 7.5/325 mg PO PRN for pain scale. Morphine 5 mg IV q4h PRN pain > 5. Ancef 1 g x 3 bags. Continue LR at 100 ml/hr. encourage PO intake, DC when tolerating PO. Monitor for constipation, Lillie-Colace 1 tab PO BID, Dulcolax suppository PRN. Monitor for nausea, Zofran 4 mg IV q6hr PRN nausea. Hypertension, chronic: Continue Lopressor 25 mg PO BID. monitor. Osteopenia: Continue calcium/vitamin d 250 mg PO TID. Other chronic medical problems include anxiety, depression, hypothyroidism and are stable at this time. Continue home medications as indicated. DVT prophylaxis: SCDs/TEDs. Heparin 5,000 units sq Q8hr. DC plan: DC likely to SNF when improved and cleared by consultants. Magaly Perez MD Feb 03, 2017 15:09
[2017-02-03] MEDS ORDERED: LACTULOSE SYRUP 20 GM/30 ML CUP PO PRN (15:15)
[2017-02-03] MEDS: MAGNESIUM HYDROXIDE SUSP 30 ML CUP PO PRN (21:18)
[2017-02-04] MEDS: ACETAMINOPHEN/HYDROcodone 325 MG/7.5 MG TAB PO PRN ×5 (00:07→20:54)
[2017-02-04 04:20] VITALS: BP 175/66; PULSE 71; RESP 16; TEMP 98.3; O2SAT 93
[2017-02-04] MEDS: LEVOTHYROXINE SODIUM 100 MCG TAB PO SCH (05:45)
[2017-02-04] MEDS: HEPARIN SODIUM - SQ 10,000 UNITS/ML VIAL SQ SCH ×3 (05:46→20:54)
--- NOTE | 2017-02-04 06:55 | PD.ORT.PN ---
Subjective Subjective Remarks POD 2 s/p ORIF right ankle doing well. pain controlled. out of bed with max assist. Objective Vitals Vital Signs Date Time Temp Pulse Resp B/P Pulse Ox O2 Delivery O2 Flow Rate FiO2 02/04/17 04:20 98.3 71 16 175/66 93 02/03/17 23:40 98.4 80 16 110/61 93 02/03/17 20:05 96.9 75 16 123/61 95 02/03/17 17:02 98.1 70 16 135/61 97 02/03/17 12:11 97.6 78 20 154/66 97 02/03/17 08:59 97.9 76 16 159/70 99 02/03/17 08:53 100 Nasal Cannula 1.00 I/O 02/03/17 02/03/17 02/03/17 02/04/17 02/04/17 02/04/17 07:00 15:00 23:00 07:00 15:00 23:00 Intake Total 720 ml 480 ml 480 ml Output Total 200 ml Balance 720 ml -200 ml 480 ml 480 ml Intake Oral 720 ml 480 ml 480 ml Output Urine Total 200 ml # Voids 3 1 3 9 # Bowel Movements 0 0 0 Result Diagram: 02/03/17 0609 02/03/17 0609 Objective Remarks RLE: Dressing intact. +short leg splint. NVI Assessment & Plan Assessment and Plan Right ankle bi-malleolar fracture subluxation. ORIF with plates and screws: POD #2 PLAN: Nonweightbearing right leg. No need for anticoagulation by orthopedics. If medicine feels it is necessary , I will defer to them. Stable for discharge by orthopedics. This patient will likely need to consider SNF. 3008 form has been filled out as well as supplemental. [place] for pain Follow-up in 2 weeks If still in hospital over the weekend we will see her one time -Ortho clear for discharge Odin Santiago Feb 04, 2017 06:55
[2017-02-04] MEDS: LACTATED RINGER'S 1000 ML INJ 1,000 ML IV SCH ×2 (07:00→13:49)
[2017-02-04 07:45] VITALS: BP 155/72; PULSE 72; RESP 18; TEMP 98.3; O2SAT 94
[2017-02-04 08:46] LABS: AUTOMATED NEUTROPHIL # 4.7 TH/MM3 (1.8-7.7); BASOPHIL % 0.2 % (0.0-2.0); EOSINOPHIL # 0.3 TH/MM3 (0-0.4); EOSINOPHIL % 3.3 % (0.0-4.0); HEMATOCRIT 33.2 % (35.0-46.0); HEMO FLAGS DIFF FINAL; LYMPH % 29.9 % (9.0-44.0); LYMPHOCYTE # 2.5 TH/MM3 (1.0-4.8); MEAN CELL VOLUME 82.9 FL (80.0-100.0); MEAN CORPUSCULAR HEMOGLOBIN 26.7 PG (27.0-34.0); MEAN CORPUSCULAR HGB CONC 32.2 % (32.0-36.0); MONO % 9.8 % (0.0-8.0); NEUT % 56.8 % (16.0-70.0); PLATELET COUNT 175 TH/MM3 (150-450); RED BLOOD COUNT 4.01 MIL/MM3 (4.00-5.30); RED CELL DISTRIBUTION WIDTH 13.6 % (11.6-17.2); WHITE BLOOD COUNT 8.3 TH/MM3 (4.0-11.0)
[2017-02-04] MEDS: SODIUM CHLORIDE 0.9% FLUSH 5 ML FLUSH IVF SCH ×2 (09:00→21:00)
--- NOTE | 2017-02-04 09:26 | HHI.DS ---
Discharge Summary Admission Date Feb 02, 2017 at 05:24 Admitting Diagnosis bimalleolar right ankle fracture, right fibula fracture. (1) Bimalleolar fracture of right ankle ICD Code: S82.841A Brief History - From Admission Written by Jaida Miller, acting as scribe for Dr. Perez on 02/02/17 at 16:45. This note was transcribed by scribe Jaida LUNA. I, Dr. Magaly Perez personally performed the history, physical exam, and medical decision making; and confirmed the accuracy of the information in the transcribed note. Authenticated by Dr. Magaly Perez on 02/02/17 at 16:45. Mrs. Marquez is a 72-year-old female with a known medical history of type 2 diabetes mellitus, osteopenia, hypothyroidism, hypertension, dyslipidemia, osteoarthritis and degenerative disc disease who presented to the ED with complaints of right ankle pain after sustaining a fall when getting up from bed to go to the restroom. Patient states she had pivoted and twisted ankle, with a audible pop heard. Upon arrival it was found on right ankle x-ray patient sustained a bimalleolar fracture and commuted distal tib fracture. Patient is status post right ankle open treatment of internal fixation with lateral plates and screws and medial screws with Dr. Moreno. Patient was found to have significant osteopenia per surgery note. At this time patient is seen and examined. Current pain is a 7/10 on pain scale, sensation intact, denies any numbness of tingling. Anuj dressing wrap in place dry and intact. Denies any recent fever, chills, cough, shortness of breath, chest pain, palpitations, abdominal pain, nausea, vomiting, diarrhea, or dysuria. CBC/BMP: 02/04/17 0733 02/03/17 0609 Significant Findings Laboratory Tests Test 02/02/17 02/03/17 02/04/17 03:20 06:09 07:33 Monocytes (%) (Auto) 8.3 % (0.0-8.0) 8.9 % (0.0-8.0) 9.8 % (0.0-8.0) Activated Partial 23.5 SEC Thromboplast Time (24.3-30.1) Creatinine 1.31 MG/DL 1.24 MG/DL (0.50-1.00) (0.50-1.00) Estimat Glomerular Filtration 40 ML/MIN (>89) 42 ML/MIN (>89) Rate Random Glucose 168 MG/DL 131 MG/DL (74-106) (74-106) Red Blood Count 3.67 MIL/MM3 (4.00-5.30) Hemoglobin 10.2 GM/DL 10.7 GM/DL (11.6-15.3) (11.6-15.3) Hematocrit 30.0 % 33.2 % (35.0-46.0) (35.0-46.0) Neutrophils (%) (Auto) 71.5 % (16.0-70.0) Mean Corpuscular Hemoglobin 26.7 PG (27.0-34.0) PE at Discharge GENERAL: Well-nourished, well-developed patient, lying in bed, alert and oriented. SKIN: No rashes, ecchymoses or lesions. Warm and dry. HEAD: Atraumatic. Normocephalic. Pupils equal round and reactive. Extraocular motions intact. No scleral icterus. Nose without bleeding. Airway patent. NECK: Trachea midline. No JVD or lymphadenopathy. Supple. CARDIOVASCULAR: Regular rate and rhythm. No murmur appreciated. RESPIRATORY: Clear to auscultation. Breath sounds equal bilaterally. No wheezes , rales, or rhonchi. GASTROINTESTINAL: Abdomen soft, non-tender, nondistended. No guarding. MUSCULOSKELETAL: Extremities without clubbing, cyanosis, or edema. No joint tenderness, effusion, or edema noted. Right leg anuj bandage in place, clean, dry , intact. NEUROLOGICAL: Awake and alert. Cranial nerves II through XII intact. Motor and sensory grossly within normal limits. Five out of 5 muscle strength in all muscle groups. Normal speech. Magaly Perez MD Feb 04, 2017 09:26
[2017-02-04] MEDS ORDERED: ALPR.25 PO (09:27)
[2017-02-04] MEDS ORDERED: BENZOCAINE-MENTHOL (SUGAR FREE) 15 MG-3.6 MG LOZENGE BUCCAL PRN (09:30)
[2017-02-04 09:37] LABS: BICARBONATE 30.3 MEQ/L (21.0-32.0); POTASSIUM 4.4 MEQ/L (3.5-5.1)
[2017-02-04] MEDS: MULTIVITAMINS/MINERALS THERAPEUTIC TAB PO SCH (10:05)
[2017-02-04] MEDS: METOPROLOL TARTRATE 25 MG TAB PO SCH ×2 (10:05→20:53)
[2017-02-04] MEDS: DOCUSATE SODIUM 50 MG/SENNA 8.6 MG TAB PO SCH ×2 (10:05→20:53)
[2017-02-04] MEDS: CALCIUM/VITAMIN D 250 MG/125 U TAB PO SCH ×3 (10:05→16:27)
[2017-02-04] MEDS: DULoxetine HCl DR 60 MG CAP PO SCH ×2 (10:05→20:53)
[2017-02-04 12:00] VITALS: BP 139/54; PULSE 69; RESP 18; TEMP 95.7; O2SAT 94
[2017-02-04] MEDS ORDERED: MAGNESIUM HYDROXIDE SUSP 30 ML CUP PO PRN (13:15)
[2017-02-04] MEDS ORDERED: LACTULOSE SYRUP 20 GM/30 ML CUP PO PRN (13:15)
[2017-02-04] MEDS ORDERED: DOCUSATE SODIUM 50 MG/SENNA 8.6 MG TAB PO SCH (13:15)
[2017-02-04] MEDS: SENNOSIDES 8.6 MG TAB PO PRN (13:47)
[2017-02-04] MEDS: MAGNESIUM HYDROXIDE SUSP 30 ML CUP PO PRN (13:47)
[2017-02-04 16:00] VITALS: BP 159/86; PULSE 70; RESP 18; TEMP 97.7; O2SAT 96
--- NOTE | 2017-02-04 16:26 | HHI.PR ---
Subjective Remarks The patient is in bed, says she feels weak and tired. Says she did not have a bowel movement however she is refusing some medications for constipation. Pain is controlled by medications. Denies nausea, vomiting, diarrhea or constipation. Objective Vitals Vital Signs Date Time Temp Pulse Resp B/P Pulse Ox O2 Delivery O2 Flow Rate FiO2 02/04/17 12:00 95.7 69 18 139/54 94 02/04/17 07:45 98.3 72 18 155/72 94 02/04/17 04:20 98.3 71 16 175/66 93 02/03/17 23:40 98.4 80 16 110/61 93 02/03/17 20:05 96.9 75 16 123/61 95 02/03/17 17:02 98.1 70 16 135/61 97 I/O 02/03/17 02/03/17 02/03/17 02/04/17 02/04/17 02/04/17 07:00 15:00 23:00 07:00 15:00 23:00 Intake Total 720 ml 480 ml 480 ml Output Total 200 ml Balance 720 ml -200 ml 480 ml 480 ml Intake Oral 720 ml 480 ml 480 ml Output Urine Total 200 ml # Voids 3 1 3 9 # Bowel Movements 0 0 0 Result Diagram: 02/04/17 0733 02/04/17 0733 Imaging Last Impressions Ankle X-Ray 02/02/17 0239 Signed Impressions: Service Date/Time: January 02:42 - CONCLUSION: Fractures involving the medial and posterior malleolus. Fracture the distal fibular shaft which is comminuted. Mic Schmid MD Objective Remarks GENERAL: Well-nourished, well-developed patient, lying in bed, alert and oriented. SKIN: No rashes, ecchymoses or lesions. Warm and dry. HEAD: Atraumatic. Normocephalic. Pupils equal round and reactive. Extraocular motions intact. No scleral icterus. Nose without bleeding. Airway patent. NECK: Trachea midline. No JVD or lymphadenopathy. Supple. CARDIOVASCULAR: Regular rate and rhythm. No murmur appreciated. RESPIRATORY: Clear to auscultation. Breath sounds equal bilaterally. No wheezes , rales, or rhonchi. GASTROINTESTINAL: Abdomen soft, non-tender, nondistended. No guarding. MUSCULOSKELETAL: Extremities without clubbing, cyanosis, or edema. No joint tenderness, effusion, or edema noted. Right leg dave bandage in place, clean, dry , intact. NEUROLOGICAL: Awake and alert. Cranial nerves II through XII intact. Motor and sensory grossly within normal limits. Five out of 5 muscle strength in all muscle groups. Normal speech. A/P Problem List: (1) Bimalleolar fracture of right ankle ICD Code: S82.841A Status: Acute Assessment and Plan Mrs. Marquez is a 72-year-old female with a known medical history of type 2 diabetes mellitus, osteopenia, hypothyroidism, hypertension, dyslipidemia, osteoarthritis and degenerative disc disease who presented to the ED with complaints of right ankle pain after sustaining a fall when getting up from bed to go to the restroom. Patient states she had pivoted and twisted ankle, with a audible pop heard. Upon arrival it was found on right ankle x-ray patient sustained a bimalleolar fracture and commuted distal tib fracture. Patient is status post right ankle open treatment of internal fixation with lateral plates and screws and medial screws with Dr. Moreno. S/p fall with bimalleolar fracture and commuted distal tib fracture. Status post right ankle open treatment internal fixation with lateral plates and screws and medial screws on 02/03/[address] Mclaughlin Control pain. [place] 7.5/325 mg PO PRN for pain scale. Morphine 5 mg IV q4h PRN pain > 5. Ancef 1 g x 3 bags. Continue LR at 100 ml/hr. encourage PO intake, DC when tolerating PO. Monitor for constipation, Lillie-Colace 1 tab PO BID, Dulcolax suppository PRN. Monitor for nausea, Zofran 4 mg IV q6hr PRN nausea. Hypertension, chronic: Continue Lopressor 25 mg PO BID. monitor. Osteopenia: Continue calcium/vitamin d 250 mg PO TID. Other chronic medical problems include anxiety, depression, hypothyroidism and are stable at this time. Continue home medications as indicated. DVT prophylaxis: SCDs/TEDs. Heparin 5,000 units sq Q8hr. DC plan: DC to SNF when arrangements done Magaly Perez MD Feb 04, 2017 16:26
[2017-02-04 20:24] VITALS: BP 160/83; PULSE 79; RESP 18; TEMP 97.8; O2SAT 96
[2017-02-04] MEDS: ALPRAZolam 0.25 MG TAB PO PRN (20:53)
[2017-02-05 00:08] VITALS: BP 143/69; PULSE 81; RESP 18; TEMP 98.6; O2SAT 96
[2017-02-05] MEDS: LACTATED RINGER'S 1000 ML INJ 1,000 ML IV SCH ×2 (00:38→12:17)
[2017-02-05] MEDS: ACETAMINOPHEN/HYDROcodone 325 MG/7.5 MG TAB PO PRN ×4 (01:56→15:56)
[2017-02-05] MEDS: LEVOTHYROXINE SODIUM 100 MCG TAB PO SCH (06:01)
[2017-02-05] MEDS: MAGNESIUM HYDROXIDE SUSP 30 ML CUP PO PRN (06:02)
[2017-02-05] MEDS: HEPARIN SODIUM - SQ 10,000 UNITS/ML VIAL SQ SCH ×2 (06:02→13:47)
[2017-02-05] MEDS: SENNOSIDES 8.6 MG TAB PO PRN (06:15)
--- NOTE | 2017-02-05 07:32 | PD.ORT.PN ---
Subjective Subjective Remarks Resting comfortably. No bowel movement Objective Vitals Vital Signs Date Time Temp Pulse Resp B/P Pulse Ox O2 Delivery O2 Flow Rate FiO2 02/05/17 00:08 98.6 81 18 143/69 96 02/04/17 20:24 97.8 79 18 160/83 96 02/04/17 19:44 Room Air 02/04/17 16:00 97.7 70 18 159/86 96 02/04/17 12:00 95.7 69 18 139/54 94 02/04/17 07:45 98.3 72 18 155/72 94 I/O 02/04/17 02/04/17 02/04/17 02/05/17 02/05/17 02/05/17 07:00 15:00 23:00 07:00 15:00 23:00 Intake Total 480 ml 660 ml 480 ml 480 ml Balance 480 ml 660 ml 480 ml 480 ml Intake Oral 480 ml 660 ml 480 ml 480 ml # Voids 9 4 3 3 # Bowel Movements 0 0 0 0 Result Diagram: 02/04/1773202/04/1733 Objective Remarks RLE: Dressing intact. +short leg splint. NVI Assessment & Plan Assessment and Plan Right ankle bi-malleolar fracture subluxation. ORIF with plates and screws: POD #3 PLAN: Nonweightbearing right leg. No need for anticoagulation by orthopedics. If medicine feels it is necessary , I will defer to them. Stable for discharge by orthopedics. Discharge to rehabilitation once bowel movement achieved [place] for pain Follow-up in 2 weeks -Ortho clear for discharge Rome Green Jr. Feb 05, 2017 07:32
[2017-02-05 08:01] VITALS: BP 186/91; PULSE 80; RESP 18; TEMP 97.9; O2SAT 95
[2017-02-05] MEDS: DOCUSATE SODIUM 50 MG/SENNA 8.6 MG TAB PO SCH (08:04)
[2017-02-05] MEDS: CALCIUM/VITAMIN D 250 MG/125 U TAB PO SCH ×3 (08:05→17:50)
[2017-02-05] MEDS: ALPRAZolam 0.25 MG TAB PO PRN ×2 (08:05→15:56)
[2017-02-05] MEDS: MULTIVITAMINS/MINERALS THERAPEUTIC TAB PO SCH (08:05)
[2017-02-05] MEDS: METOPROLOL TARTRATE 25 MG TAB PO SCH (08:05)
[2017-02-05] MEDS: DULoxetine HCl DR 60 MG CAP PO SCH (08:05)
[2017-02-05] MEDS: SODIUM CHLORIDE 0.9% FLUSH 5 ML FLUSH IVF SCH (08:06)
[2017-02-05 11:51] VITALS: BP 148/73; PULSE 71; RESP 18; TEMP 96.6; O2SAT 95
--- NOTE | 2017-02-05 14:12 | HHI.PR ---
Subjective Remarks 72-year-old female. No bowel movement has occurred yet. She is cleared for orthopedic surgery for discharge to [facility] facility. She will need a bowel movement prior to discharge as last time she was in a situation and left without bowel movement she did not have a bowel movement for 11 days and this became problem. Objective Vital Signs Date Time Temp Pulse Resp B/P Pulse Ox O2 Delivery O2 Flow Rate FiO2 02/05/17 08:01 97.9 80 18 186/91 95 02/05/17 00:08 98.6 81 18 143/69 96 02/04/17 20:24 97.8 79 18 160/83 96 02/04/17 19:44 Room Air 02/04/17 16:00 97.7 70 18 159/86 96 I/O 02/04/17 02/04/17 02/04/17 02/05/17 02/05/17 02/05/17 07:00 15:00 23:00 07:00 15:00 23:00 Intake Total 480 ml 660 ml 480 ml 480 ml Balance 480 ml 660 ml 480 ml 480 ml Intake Oral 480 ml 660 ml 480 ml 480 ml # Voids 9 4 3 3 # Bowel Movements 0 0 0 0 Result Diagram: 02/04/17 0733 02/04/17732 Objective Remarks GENERAL: NAD, A&Ox3 HEAD: Normocephalic. NECK: Supple, trachea midline. No lymphadenopathy. EYES: No scleral icterus. No injection or drainage. CARDIOVASCULAR: Regular rate and rhythm without murmurs, gallops, or rubs. RESPIRATORY: Breath sounds equal bilaterally. No accessory muscle use. GASTROINTESTINAL: Abdomen soft, non-tender, nondistended. MUSCULOSKELETAL: No cyanosis, or edema. Right ankle is bandaged SKIN: Warm and dry. NEURO: No focal neurological deficitis. Medications and IVs Administered Medications Medications (Trade) Dose Ordered Sig/Tal Route PRN Reason Start Time Stop Time Status Last Admin Dose Admin Alprazolam (Xanax) 0.25 mg TID PRN PO ANXIETY 02/02/17 05:30 02/05/17 08:05 Duloxetine HCl (Cymbalta Dr) 60 mg BID PO 02/02/17 09:00 02/05/17 08:05 Levothyroxine Sodium (Synthroid) 100 mcg DAILY@06 PO 02/02/17 06:00 02/05/17 06:01 Metoprolol Tartrate (Lopressor) 25 mg BID PO 02/02/17 09:00 02/05/17 08:05 Heparin Sodium (Porcine) (Heparin Inj) 5,000 units Q8H SQ 02/02/17 06:00 02/05/17 13:47 Bisacodyl 10 mg 10 mg DAILY PRN RECTAL SEVERE CONSITIPATION 02/02/17 05:30 02/05/17 08:05 Lactated Ringer's (Lr 1000 ml Inj) 1,000 ml @ 100 mls/hr Q10H IV 02/02/17 15:00 02/02/17 15:00 IV Flush (NS Flush) 2 ml BID IVF 02/02/17 21:00 02/03/17 09:00 Magnesium Hydroxide (Milk Of Magnesia Liq) 10 ml Q12H PRN PO CONSTIPATION 02/02/17 14:15 02/05/17 06:02 Acetaminophen/ Hydrocodone Bitart ([place] 7.5-325 Mg) 1 tab Q4H PRN PO PAIN LESS THAN 5 ON SCALE 02/02/17 14:15 02/05/17 12:12 Acetaminophen/ Hydrocodone Bitart ([place] 7.5-325 Mg) 2 tab Q6H PRN PO PAIN GREATER THAN/EQUAL TO 5 02/02/17 14:15 02/05/17 01:56 Calcium/Vitamin D (Oscal-D 250-125) 250 mg TID PO 02/02/17 18:00 02/05/17 12:11 Multivitamins/ Minerals Therapeutic (Theragran M Tab) 1 tab DAILY PO 02/03/17 09:00 02/05/17 08:05 Diphenhydramine HCl (Benadryl) 25 mg Q6H PRN PO ITCHING 02/02/17 14:15 02/05/17 08:04 Sennosides (Senokot) 17.2 mg Q12H PRN PO MODERATE - SEVERE CONSTIPATION 02/04/17 13:15 02/05/17 06:15 Lactulose (Lactulose Liq) 30 ml DAILY PRN PO SEVERE CONSITIPATION 02/04/17 13:15 02/05/17 12:11 Senna/Docusate Sodium (Lillie-Colace) 1 tab BID PO 02/04/17 21:00 02/05/17 08:04 A/P Problem List: (1) Bimalleolar fracture of right ankle ICD Code: S82.841A (2) Displaced comminuted fracture of shaft of right fibula, initial encounter for closed fracture ICD Code: S82.451A Assessment and Plan Assessment and Plan 72-year-old female status post right ankle fracture. Constipation is present and a bowel movement will be needed prior to discharge. Constipation Numerous treatment modalities have been attempted. No bowel movement yet. Milk of magnesia provided this morning Magnesium citrate will be given in the afternoon if no bowel movement bimalleolar fracture and commuted distal tib fracture. Repaired with internal fixation on 02/03/17 When necessary [place] for pain Plan for discharge to [facility] facility Orthopedic surgery has cleared the patient for discharge Hypertension Lopressor 25 mg PO BID Osteopenia: May be contributory to fracture Continue calcium/vitamin d 250 mg PO TID. Gen. anxiety disorder Depression Hypothyroidism Continue baseline treatments These conditions are stable DVT prophylaxis SCDs/TEDs. Heparin 5,000 units sq Q8hr. Discharge planning Discharged to [facility] facility after bowel movement occurs Jermaine Mcduffie MD Feb 05, 2017 14:12
[2017-02-05] MEDS ORDERED: MAGNESIUM CITRATE SOLN 300 ML BTL PO PRN (14:15)
[2017-02-05 15:48] VITALS: BP 145/80; PULSE 77; RESP 18; TEMP 97.6; O2SAT 96
--- NOTE | 2017-02-25 08:23 | HHI.DS ---
Discharge Summary Admission Date Feb 02, 2017 at 05:24 Discharge Date: Feb 05, 2017 Admitting Diagnosis bimalleolar right ankle fracture, right fibula fracture. (1) Bimalleolar fracture of right ankle ICD Code: S82.841A Procedures Fracture repairs, right ankle Brief History - From Admission Written by Jaida Miller, acting as scribe for Dr. Perez on 02/02/17 at 16:45. This note was transcribed by scribe Jaida LUNA. I, Dr. Magaly Perez personally performed the history, physical exam, and medical decision making; and confirmed the accuracy of the information in the transcribed note. Authenticated by Dr. Magaly Perez on 02/02/17 at 16:45. Mrs. Marquez is a 72-year-old female with a known medical history of type 2 diabetes mellitus, osteopenia, hypothyroidism, hypertension, dyslipidemia, osteoarthritis and degenerative disc disease who presented to the ED with complaints of right ankle pain after sustaining a fall when getting up from bed to go to the restroom. Patient states she had pivoted and twisted ankle, with a audible pop heard. Upon arrival it was found on right ankle x-ray patient sustained a bimalleolar fracture and commuted distal tib fracture. Patient is status post right ankle open treatment of internal fixation with lateral plates and screws and medial screws with Dr. Moreno. Patient was found to have significant osteopenia per surgery note. At this time patient is seen and examined. Current pain is a 7/10 on pain scale, sensation intact, denies any numbness of tingling. Anuj dressing wrap in place dry and intact. Denies any recent fever, chills, cough, shortness of breath, chest pain, palpitations, abdominal pain, nausea, vomiting, diarrhea, or dysuria. PE at Discharge GENERAL: Well-nourished, well-developed patient, lying in bed, alert and oriented. SKIN: No rashes, ecchymoses or lesions. Warm and dry. HEAD: Atraumatic. Normocephalic. Pupils equal round and reactive. Extraocular motions intact. No scleral icterus. Nose without bleeding. Airway patent. NECK: Trachea midline. No JVD or lymphadenopathy. Supple. CARDIOVASCULAR: Regular rate and rhythm. No murmur appreciated. RESPIRATORY: Clear to auscultation. Breath sounds equal bilaterally. No wheezes , rales, or rhonchi. GASTROINTESTINAL: Abdomen soft, non-tender, nondistended. No guarding. MUSCULOSKELETAL: Extremities without clubbing, cyanosis, or edema. No joint tenderness, effusion, or edema noted. Right leg anuj bandage in place, clean, dry , intact. NEUROLOGICAL: Awake and alert. Cranial nerves II through XII intact. Motor and sensory grossly within normal limits. Five out of 5 muscle strength in all muscle groups. Normal speech. Hospital Course Admit for right ankle fracture. Surgical repair occurred. No complications. Cleared for discharge on 02/05/17. Discharged to SNF. Pt Condition on Discharge: Stable Discharge Disposition: Discharge to SNF Discharge Time: <= 30 minutes Discharge Instructions DIET: Follow Instructions for: Heart Healthy Diet Activities you can perform: Non Weight Bearing Other Activity Instructions: until cleared by ortho Follow up Referrals: Orthopedics - 2 Weeks @ [facility] with Vance Moreno MD PCP Follow-up New Medications: Hydrocodone-Acetaminophen ([place]) 7.5-325 mg Tab 1 TAB PO Q4H PRN PAIN #40 Ref 0 TAB Walker with Front Wheels (Walker with Front Wheels) 1 Mis Mis 1 EA .ROUTE DIRECTED #1 Ref 0 EA Continued Medications: Alprazolam (Xanax) 0.25 Mg Tab 0.25 MG PO TID PRN ANXIETY #10 Ref 0 TAB (This prescription has been renewed) Cholecalciferol (Vitamin D) 400 Unit Cap Cranberry (Vaccinium Macrocarpon) (Cranberry) 1 Powd 0 Dicyclomine (Dicyclomine) 20 Mg Tab 20 MG PO QID PRN Bowel Management #120 Ref 0 TAB Docusate Sodium (Stool Softener) 50 Mg Capsule 0 Doxepin (Doxepin) 10 Mg Cap 10 MG PO HS CAP Duloxetine DR (Duloxetine DR) 60 Mg Capdr 60 MG PO BID #30 Ref 0 CAP Fluorouracil (Topical) (Carac) 0.5 % Cre Gabapentin (Gabapentin) 300 Mg Cap 300 MG PO DAILY #60 Ref 0 CAP Krill Oil (Krill Oil) 500 Mg Capsule 0 Lactobacillus Combo No.10 (Probiotic) 1 Each Capsule Levothyroxine (Levothyroxine) 100 Mcg Tab 100 MCG PO DAILY Thyroid #30 Ref 0 TAB Metaxalone (Skelaxin) 800 Mg Tablet 800 MG PO Q6HR PRN [place] Metoprolol Tartrate (Metoprolol Tartrate) 25 Mg Tab 25 MG PO BID #60 Ref 0 TAB Metronidazole (Metrogel) 1 % Gel..gram. Discontinued Medications: Tramadol (Tramadol) 50 Mg Tab 50 MG PO Q6H PRN PAIN Ref 0 TAB Jermaine Mcduffie MD Feb 25, 2017 08:23
== END 2017-02-05 19:33 | DRG 494 ==
LOC: NEPE 02:28 → NEDA 03:41 → OBSVTOIN 05:24 → N06B 08:00
PROVIDERS: ADMIT Hospitalist; ATTEND Hospitalist
PROC: 0QSJ04Z Reposition Right Fibula with Internal Fixation Device, Open Approach (ICD-10-PCS; 2017-02-02)
PROC: 0QSG04Z Reposition Right Tibia with Internal Fixation Device, Open Approach (ICD-10-PCS; principal; 2017-02-02 12:24)
DX: S82.841A Displaced bimalleolar fracture of right lower leg, initial encounter for closed fracture (principal); E11.9 Type 2 diabetes mellitus without complications; D86.9 Sarcoidosis, unspecified; I10 Essential (primary) hypertension; E03.9 Hypothyroidism, unspecified; S82.451A Displaced comminuted fracture of shaft of right fibula, initial encounter for closed fracture; W01.0XXA Fall on same level from slipping, tripping and stumbling without subsequent striking against object, initial encounter; Y92.9 Unspecified place or not applicable; E78.5 Hyperlipidemia, unspecified; M85.80 Other specified disorders of bone density and structure, unspecified site; I25.10 Atherosclerotic heart disease of native coronary artery without angina pectoris; K21.9 Gastro-esophageal reflux disease without esophagitis; K59.00 Constipation, unspecified; M79.7 Fibromyalgia; F41.8 Other specified anxiety disorders; Z79.899 Other long term (current) drug therapy; Z85.3 Personal history of malignant neoplasm of breast; Z86.73 Personal history of transient ischemic attack (TIA), and cerebral infarction without residual deficits; Z87.442 Personal history of urinary calculi; Z90.13 Acquired absence of bilateral breasts and nipples; Z92.21 Personal history of antineoplastic chemotherapy
CPT/HCPCS: 73600; 76000; 80048; 82948; 85025; 85610; 85730; 93005; 94150; 96374; 96375; C1713; J0131; J0690; J1100; J1170; J1580; J1644; J2175; J2250; J2270; J2370; J2405; J2710; J3010; J7030; J7120; J8501